=== PATIENT | female | born 1935 | race Caucasian/White ===

== ENCOUNTER → 2016-05-01 | Outpatient (CLI) | payer OTHER ==
[~2016-05-01] MED LIST: ASPI81TA21 PO; CALCTAB5 PO; CHOLTAB3 PO; DIPH-437 PO; FRRS300 PO; FSM70 PO; FURO20TA PO; LEVO125T72 PO; LISI-461 PO; LSX/40 PO; MULT-506 PO; OPTIRAY 320 IV PRN; POTA-327 PO; PRLSR20 PO; PXL20 PO; SPRIN/30 INH; SYMIN/8045 INH; multaq PO; vitamin c PO
--- NOTE | 2016-05-01 11:51 | DIAGNOSTIC IMAGING REPORT ---
CT sinuses SINUSES-MAXILLOFACIAL WITH CLINICAL HISTORY: R04.0 [id number] Acute [id number] Headache headache TECHNIQUE: Transaxial acquisition with multi axial reformatted images COMPARISON STUDY: None FINDINGS: All major sinuses are considered clear. There is no significant mucosal thickening. No evidence for significant nasal occlusive change. Ostomy units are patent bilaterally. Osseous structures are intact throughout. IMPRESSION: Negative study Electronically signed by: Harjinder Brown M.D. 05/01/2016 11:50 AM Dictated Date/Time: 05/01/2016 11:49 AM
--- NOTE | 2016-05-01 12:00 | DIAGNOSTIC IMAGING REPORT ---
CT SCAN OF THE ABDOMEN WITH IV CONTRAST CLINICAL HISTORY: Epigastric abdominal pain. COMPARISON STUDY: No priors. TECHNIQUE: Following the IV administration of 93 cc of Optiray 320, CT scan of the abdomen is performed from the lung bases to the pelvic inlet. Images are reviewed in the axial, sagittal, and coronal planes. IV contrast was administered without complication. Automated dose control exposure was utilized. CT DOSE: 1590.74 mGy.cm FINDINGS: Lung bases: The heart is enlarged and without pericardial effusion. The coronary arteries and aortic valve leaflets are densely calcified. There is lipomatous hypertrophy of the interatrial septum. The lung bases are clear. A small hiatal hernia is noted. Liver: The contrast-enhanced liver is normal in size, contour, and attenuation. There is no intrahepatic biliary ductal dilatation. The hepatic veins and portal veins are patent. Gallbladder: Surgically absent noting clips in the gallbladder fossa. Spleen: Normal in size and attenuation. Pancreas: There is moderate glandular atrophy of the pancreas which is grossly unremarkable. Adrenal glands: Unremarkable. Kidneys: The contrast enhanced kidneys demonstrate cortical atrophy and are without hydronephrosis. The kidneys enhance symmetrically. A retroaortic left renal vein is incidentally noted. Subcentimeter cortical hypodensities likely represent cysts but are too small for definitive characterization. Abdominal vasculature: The abdominal aorta is normal in course and caliber noting moderate to advanced atherosclerotic calcification. Bowel: Visualized portions of the small bowel and colon are normal in course and caliber. Moderate fecal retention is noted in the partially imaged colon. Peritoneum: There is no intraperitoneal free air or abdominal ascites. Lymphadenopathy: Prominent lymph nodes in the boubacar hepatis are nonspecific and measure up to 10 mm in short axis. There is no retroperitoneal or mesenteric lymphadenopathy. Skeletal structures: The skeletal structures are osteopenic. Moderate lumbosacral spondylosis is observed. No lytic or blastic lesions are seen. IMPRESSION: 1. There are no acute infectious or inflammatory findings in the abdomen. 2. Cardiomegaly and hiatal hernia. 3. Colonic fecal retention. Electronically signed by: Erick Dacosta M.D. 05/01/2016 11:59 AM Dictated Date/Time: 05/01/2016 11:55 AM
== END | disposition home or self-care (01) ==
LOC: C.CTS 10:42
PROVIDERS: ATTEND Internal Medicine Pulmonary Disease
DX: R11.10 Vomiting, unspecified (principal); R10.13 Epigastric pain; J01.90 Acute sinusitis, unspecified; R51 Headache; R04.0 Epistaxis; I51.7 Cardiomegaly; K44.9 Diaphragmatic hernia without obstruction or gangrene; K59.00 Constipation, unspecified

== ENCOUNTER → 2017-10-17 | Outpatient (CLI) | payer OTHER ==
[2011-11-01 11:58] VITALS: BMI 44.0
[2017-10-02 11:38] VITALS: BMI 39.0
[~2017-10-17] MED LIST changes: +ADVIN50/60 INH; +ASPI-319 PO; -ASPI81TA21 PO; +CALC1CAP24; +CALC600T37 PO; -CALCTAB5 PO; +CHOL400T PO; -CHOLTAB3 PO; +FERR1TAB13 PO; -FRRS300 PO; -FSM70 PO; +FURO-85 PO; -FURO20TA PO; -LISI-461 PO; +LISI-726 PO; -LSX/40 PO; +LSX40 PO; +MELA1TAB5 PO; -OPTIRAY 320 IV PRN; +OXGN; +PARO1TAB27 PO; -POTA-327 PO; +POTA-639 PO; +PROPOFOL IV EMULSION 10 MG/ML 20 ML VIAL ONE; -PXL20 PO; +RANI300T2 PO; -SPRIN/30 INH; -SYMIN/8045 INH; +TIOT1SPR INH; +ZOLE5INJ
--- NOTE | 2017-10-17 11:52 | PAT Medication Instructions ---
Service Date Oct 17, 2017. Current Home Medication List Acetaminophen/Diphenhydramine (Tylenol Pm), 1 TAB PO HS PRN Aspirin Enteric Coated (Ecotrin Or Generic), 81 MG PO QAM Calcium (Calcium) Calcium (Calcium), 1 TAB PO QAM Cholecalciferol (Vitamin D), 1 TAB PO QAM Ferrous Sulfate (Kp Ferrous Sulfate), Unknown Dose PO QAM Fluticasone Prop/Salmeterol (Advair Diskus 500/50 60 Dose), 1 PUFF INH BID Furosemide (Furosemide), 1 TAB PO 3XWK Furosemide (Lasix), 20 MG PO 4XWK Home O2 Therapy (Oxygen), 2 LITER NA PRN Levothyroxine Sodium (Synthroid), 125 MCG PO QAM Lisinopril (Lisinopril), 1 TAB PO QAM Melatonin (Kp Melatonin), 1 TAB PO HS Multivitamin (Multivitamin), 1 TAB PO QAM Omeprazole (Prilosec), 20 MG PO BID Paroxetine (Paxil), 10 MG PO QAM Potassium Ext Rel (Klor-Con), 10 MEQ PO DAILY AT NOON Ranitidine (Zantac), 300 MG PO UD PRN for REFLUX Tiotropium [place] (Spiriva Respimat), 2 PUFF INH BID Zoledronic Acid (Reclast), 1 DOSE UD [multaq], 400 MG PO BID [vitamin c], 500 MG PO QAM Medication Instructions For Your Scheduled Surgery -Continue as needed: Home O2 Therapy (Oxygen), 2 LITER NA PRN Zoledronic Acid (Reclast), 1 DOSE UD - Hold the following medications the morning of surgery: Calcium (Calcium), 1 TAB PO QAM Cholecalciferol (Vitamin D), 1 TAB PO QAM Ferrous Sulfate (Kp Ferrous Sulfate), Unknown Dose PO QAM Furosemide (Furosemide), 1 TAB PO 3XWK Furosemide (Lasix), 20 MG PO 4XWK Lisinopril (Lisinopril), 1 TAB PO QAM Multivitamin (Multivitamin), 1 TAB PO QAM [vitamin c], 500 MG PO QAM - Take the following medications the morning of surgery with a sip of water: Aspirin Enteric Coated (Ecotrin Or Generic), 81 MG PO QAM Fluticasone Prop/Salmeterol (Advair Diskus 500/50 60 Dose), 1 PUFF INH BID Levothyroxine Sodium (Synthroid), 125 MCG PO QAM Omeprazole (Prilosec), 20 MG PO BID Paroxetine (Paxil), 10 MG PO QAM Ranitidine (Zantac), 300 MG PO UD PRN for REFLUX (if needed) Tiotropium [place] (Spiriva Respimat), 2 PUFF INH BID [multaq], 400 MG PO BID - Take the following medications as scheduled the afternoon/night before surgery : Acetaminophen/Diphenhydramine (Tylenol Pm), 1 TAB PO HS PRN (if needed) Fluticasone Prop/Salmeterol (Advair Diskus 500/50 60 Dose), 1 PUFF INH BID Melatonin (Kp Melatonin), 1 TAB PO HS Omeprazole (Prilosec), 20 MG PO BID Potassium Ext Rel (Klor-Con), 10 MEQ PO DAILY AT NOON Ranitidine (Zantac), 300 MG PO UD PRN for REFLUX (if needed) [multaq], 400 MG PO BID If you have any questions please call us at [phone] or [phone] or [phone]
--- NOTE | 2017-11-19 09:15 | CODING QUERY NO DIAGNOSIS ---
1937 TREATMENT RENDERED WITHOUT A DIAGNOSIS To promote full compliance with coding requirements relating to patient care, physician participation is requested in all cases of high school history teacher uncertainty. Please assist us with providing a diagnosis/symptom for the test(s) below: A diagnosis/symptom was not documented on your Order. A valid diagnosis/symptom is required to bill all insurances. Please remember that we are unable to code a diagnosis of rule out, probable, possible, questionable, or suspected. DOS 10/17/17 Tests that require a diagnosis: *TYPE/ SCREEN PROFILE DIAGNOSIS: Provider Signature: Date: Thank you , DELMA Rodriguez, [facility] Health Information Management Once completed, please kindly fax back to [phone] For questions please call [phone]
== END | disposition home or self-care (01) ==
LOC: C.LAB 08:00 → EDSTATUS 11-23 07:00
PROVIDERS: ATTEND Orthopaedic Surgery
DX: M75.120 Complete rotator cuff tear or rupture of unspecified shoulder, not specified as traumatic (principal)

== ENCOUNTER 2017-11-23 08:57 | Inpatient (IN) | payer OTHER ==
[2017-10-02 11:38] VITALS: BMI 39.0
[2017-10-17 11:15] VITALS: BMI 40.0
--- NOTE | 2017-11-21 08:16 | HISTORY & PHYSICAL EXAMINATION ---
DATE OF ADMISSION: 11/23/2017 CHIEF COMPLAINT: Primary osteoarthritis of the left shoulder. HISTORY OF PRESENT ILLNESS: Alesha is a pleasant 82-year-old female who has been dealing with chronic increasing left shoulder pain. She did have a fall about 2 years ago and her pain got much worse. She has difficulty elevating her arm above chest level. It has gone to the point where her pain and weakness are affecting her daily activities. She has trouble sleeping at night and doing anything away from her body. X-rays and clinical examination were diagnostic for primary osteoarthritis of the left shoulder. After failing conservative treatment, she had elected to proceed with a left total shoulder arthroplasty. PAST MEDICAL HISTORY: Significant for atrial fibrillation, hypothyroidism, hypertension, thyroid, breast and uterine cancer with breast cancer being treated with radiation and other cancers treated with excision, GERD, and asthma. PAST SURGICAL HISTORY: Significant for hysterectomy, breast lumpectomy, thyroidectomy, bilateral total knee arthroplasties, and cataracts. ALLERGIES: None. MEDICATIONS: Include lisinopril, Synthroid, Reclast, Paxil, Lasix, Klor-Con, Zantac, omeprazole, Symbicort, Spiriva, albuterol, aspirin, iron, melatonin, and Bentyl. FAMILY HISTORY: Significant for breast, bladder, skin cancer, diabetes, and heart disease. SOCIAL HISTORY: She is single. She lives in the [place] area. She has 9 sisters and 3 brothers. Her family is able to take care of her postoperatively. REVIEW OF SYSTEMS: She complains of left shoulder pain. All other pertinent review of systems are negative. PHYSICAL EXAMINATION: GENERAL: She is awake, alert, and oriented x3. She is in no apparent distress. She is very pleasant. HEENT: Pupils equal, round, reactive to light. Extraocular motion intact. Oral mucosa is pink and moist. HEART: Regular rate per radial pulse. LUNGS: Hailey symmetrically bilaterally with no audible breath sounds. ABDOMEN: Soft, nontender, nondistended. MUSCULOSKELETAL: On physical examination of the left shoulder, actively she has 90 degrees of forward elevation and 60 degrees of abduction. She has 3/5 motion with full can testing and external rotation. Negative belly press test. Pain over the anterior glenohumeral joint line. X-rays do show advanced arthritis with joint space narrowing, osteophyte formation, and [id number] articulation. There is flattening of the humeral head and posterior glenoid wear. IMPRESSION: Advanced osteoarthritis of the left shoulder with possible rotator cuff tear. PLAN: Given her age and functional level, we will proceed with a reverse left total shoulder arthroplasty. Postoperatively, she will be placed in an arm sling and kept overnight for postoperative medical management. She will use [facility] upon discharge.
[~2017-11-23] VITALS: Ht 167.6 cm; Wt 112.1 kg
[2017-11-23] VITALS (9 sets, daily range): BP systolic 90–154; BP diastolic 55–75; PULSE 64–75; TEMP 36.4–36.8; O2SAT 94–100; Ht 167.6 cm; Wt 112.1 kg
[~2017-11-23 08:57] MED LIST changes: +ACETAMINOPHEN 500 MG TAB PO SCH; +CEFAZOLIN 2000MG IV PUSH 15 ML IV SCH; +CeleBREX 200 MG CAP PO SCH; +FAMOTIDINE 20 MG TAB PO SCH; +GABAPENTIN 300 MG CAP PO SCH; +GABAPENTIN 900 MG PO SCH; +LACTATED RINGER'S 1000ML 1,000 ML IV SCH; +LACTATED RINGER'S 1000ML IV SCH; -PROPOFOL IV EMULSION 10 MG/ML 20 ML VIAL ONE; +ROPIVACAINE 5MG/ML 30 ML 150 MG, BUPIVACAINE 0.5% MPF INJ 30 ML, EpINEphrine HCL INJ 0.... INFIL SCH; +TRANEXAMIC ACID INJ 1,000 MG x 1 Bag Intra-Op IV SCH
--- NOTE | 2017-11-23 08:57 | History & Physical Bridge Note ---
H&P Re-Evaluation Bridge Note: I have examined the patient, reviewed the History & Physical and in the interval since the performance of the History & Physical I have noted the following changes of clinical significance: No changes noted
[2017-11-23] MEDS ORDERED: SOD PHOSPHATE/SOD BIPHOSPHATE ENEMA 132 ML BTL PR PRN (09:00)
[2017-11-23] MEDS ORDERED: MAGNESIUM HYDROXIDE SUSP 30 ML UDC PO PRN (09:00)
[2017-11-23] MEDS ORDERED: CEFAZOLIN IV 2,000 MG in DEXTROSE 5% 50ML 50 ML IV SCH (09:00)
[2017-11-23] MEDS ORDERED: BISACODYL 10 MG SUPP PR PRN (09:00)
[2017-11-23] MEDS ORDERED: ONDANSETRON INJ 2 MG/ML 2 ML VIAL IV PRN ×2 (09:00→12:45)
[2017-11-23] MEDS ORDERED: METOCLOPRAMIDE HCL INJ 5 MG/ML 2 ML VIAL IV PRN (09:00)
[2017-11-23] MEDS ORDERED: NALOXONE HCL 0.4 MG/1 ML VIAL/CARP IV PRN (09:00)
[2017-11-23] MEDS ORDERED: MoRPHine SULFATE 2 MG/ML CARP IV PRN (09:00)
[2017-11-23] MEDS ORDERED: OXYCODONE HCL IR 5 MG TAB (IMMEDIATE RELEASE) PO PRN (09:00)
[2017-11-23] MEDS ORDERED: BUPIVACAINE/EPINEPHRINE 0.25% 1:200,000 30 ML VIAL ONE (09:25)
[2017-11-23] MEDS ORDERED: DEXAMETHASONE SOD INJ 4 MG/ML VIAL ONE (09:25)
[2017-11-23] MEDS ORDERED: BACITRACIN 50000 UNIT VIAL ONE (10:49)
[2017-11-23] MEDS ORDERED: ORTHO JOINT ANESTHETIC ONE (10:49)
[2017-11-23] MEDS ORDERED: PATIENT'S ALLERGY INFO NEEDS ENTERED SCH (11:00)
[2017-11-23] MEDS ORDERED: GLYCOPYRROLATE INJ 0.2 MG/ML VIAL ONE (11:02)
[2017-11-23] MEDS ORDERED: LIDOCAINE HCL 2% 2 ML VIAL (20MG/ML) ONE (11:02)
[2017-11-23] MEDS ORDERED: FENTANYL CITRATE INJ 50 MCG/1 ML 2 ML VIAL ONE (11:02)
[2017-11-23] MEDS ORDERED: PROPOFOL IV EMULSION 10 MG/ML 20 ML VIAL ONE (11:02)
[2017-11-23] MEDS ORDERED: NEOSTIGMINE METHYLSULFATE 5 MG/5 ML SYR ONE (11:02)
[2017-11-23] MEDS ORDERED: ROCURONIUM BROMIDE 10 MG/ML 5 ML VIAL ONE (11:02)
[2017-11-23] MEDS ORDERED: MIDAZOLAM HCL 1 MG/ML 2ML VIAL ONE (11:02)
[2017-11-23] MEDS ORDERED: ONDANSETRON INJ 2 MG/ML 2 ML VIAL ONE (11:02)
[2017-11-23] MEDS: TRANEXAMIC ACID INJ 1,000 MG x 2 Bags IV SCH ×4 (11:30→17:16)
[2017-11-23] MEDS: CEFAZOLIN 2000MG IV PUSH 15 ML IV SCH ×2 (11:48→11:58)
[2017-11-23] MEDS ORDERED: PROMETHAZINE HCL INJ 6.25 MG in SODIUM CHLORIDE 0.9% 50ML 50 ML IV PRN (12:45)
[2017-11-23] MEDS ORDERED: EpHEDrine SULFATE INJ 50 MG/ML AMP IV PRN (12:45)
[2017-11-23] MEDS ORDERED: FENTANYL CITRATE INJ 50 MCG/1 ML 2 ML VIAL IV PRN (12:45)
[2017-11-23] MEDS ORDERED: ATROPINE SULFATE 0.1 MG/ML 5ML SYR IV PRN (12:45)
--- NOTE | 2017-11-23 13:16 | [facility] Post Operative Brief Note ---
Immediate Operative Summary Operative Date Nov 23, 2017. Pre-Operative Diagnosis Primary osteoarthritis of the left shoulder Post-Operative Diagnosis Primary osteoarthritis of the left shoulder Procedure(s) Performed Left reverse total shoulder replacement Surgeon Dr. Gerard Zelaya Environmental Restoration Planner Surgeon(s) Jermain Telles PA-C Estimated Blood Loss 300ml Findings Consistent with Post-Op Diagnosis Specimens A. Left humeral head Anesthesia Type General [facility]
--- NOTE | 2017-11-23 14:13 | Anesthesiology Progress Note ---
Anesthesia Post Op Note Date & Time Nov 23, 2017 at 14:13 Vital Signs Pain Intensity: 0 Vital Signs Past 12 Hours Date Time Temp Pulse Resp B/P (MAP) Pulse Ox O2 Delivery O2 Flow Rate FiO2 11/23/17 14:05 63 20 116/68 100 Oxymask 10 11/23/17 13:55 63 20 115/64 100 Oxymask 10 11/23/17 13:47 37.0 73 20 142/79 99 Room Air 10 11/23/17 09:34 36.7 75 20 154/69 99 Room Air Notes Mental Status: alert / awake / arousable, participated in evaluation Pt Amnestic to Procedure: Yes Nausea / Vomiting: adequately controlled Pain: adequately controlled Airway Patency, RR, SpO2: stable & adequate BP & HR: stable & adequate Hydration State: stable & adequate Anesthetic Complications: no major complications apparent Block working well in pacu
--- NOTE | 2017-11-23 14:19 | DIAGNOSTIC IMAGING REPORT ---
L SHOULDER MIN 2 VIEWS ROUTINE CLINICAL HISTORY: 82 years-old Female presenting with Post shoulder surgery. TECHNIQUE: Frontal and transcatheter Y views of the left shoulder were obtained. COMPARISON: . FINDINGS: There has been interval reverse total left shoulder arthroplasty. Expected soft tissue emphysema and overlying skin michelet. No malalignment. No periprosthetic fracture. Visualized portion of the left lung clear. Surgical clips project over the base of the neck. IMPRESSION: Expected postsurgical appearance status post reverse total shoulder arthroplasty. Electronically signed by: Eduard Reyes M.D. 11/23/2017 2:17 PM Dictated Date/Time: 11/23/2017 2:16 PM
--- NOTE | 2017-11-23 15:28 | Discharge Instructions ---
Discharge Instructions Date of Service Nov 23, 2017. Admission Reason for Admission: Left Shoulder Degenerative Joint Disease Discharge Discharge Diagnosis / Problem: Left Reverse Total Shoulder Discharge Goals Goal(s): Decrease discomfort, Improve function Activity Recommendations Activity Limitations: as noted below . Instructions / Follow-Up Instructions / Follow-Up Activity and Therapy Recommendations: * Wear your sling for 3 weeks, unless otherwise instructed. You may remove your sling to shower and to dress, but otherwise, you should be in your sling at all times, including while sleeping * The shoulder replacement is very stable and you can use your hand while in the sling * Physical Therapy should start about 3-5 days from your day of surgery. Therapy will last about 8-12 weeks * You were shown a series of exercises in the hospital. Do these exercises daily including the exercises you were shown in physical therapy. Medications: * Narcotic You will likely be sent home from the hospital with a prescription for the narcotic pain medication that worked best throughout your stay. * Other medications may be prescribed for specific circumstances. If you have any questions, please call the office at . * Resume previous home medications unless otherwise instructed Dressing Care: If the incision is not draining then you may leave the michelet open to air. If there is a little bit of drainage or if the michelet are getting stuck on your clothing then cover the incision with a dry dressing. The michelet will be removed at your 2 week follow-up appointment. Showering: You may shower 5 days from the day of surgery. Let the soapy shower water run over the michelet and pat them dry. Do not scrub or soak the incision. Things To Watch For: * Drainage from the incision site that occurs more than one week after your surgery. * Increased redness at the incision site. * Fever above 102 degrees Fahrenheit. * Unusual chest pain or shortness of breath. * Call [facility] at with any of the above problems Follow-Up Visit: Follow-up with Dr. Zelaya 2 weeks after your day of surgery. An appointment was probably scheduled when you signed-up for surgery in the office. If you have any questions call Office Instructions: More detailed instructions as well as Frequently Asked Questions were provided in a folder by our office when you signed-up for surgery. Please review these instructions when you get home. If you have any further questions or concerns, please feel free to call the office at [phone] Current Hospital Diet Patient's current hospital diet: Regular Diet Discharge Diet Recommended Diet: Regular Diet Procedures Procedures Performed: Left reverse total shoulder replacement Pending Studies Studies pending at discharge: no Medical Emergencies . Who to Call and When: Medical Emergencies: If at any time you feel your situation is an emergency, please call 911 immediately. . Non-Emergent Contact Non-Emergency issues call your: Surgeon Call Non-Emergent contact if: wound has increased drainage, wound has increased redness . "Provider Documentation" section prepared by Gerard Zelaya. .
--- NOTE | 2017-11-23 15:35 | OPERATIVE REPORT ---
DATE OF OPERATION: 11/23/2017 PREOPERATIVE DIAGNOSIS: Primary osteoarthritis with insufficient rotator cuff of the left shoulder. POSTOPERATIVE DIAGNOSIS: Primary osteoarthritis with insufficient rotator cuff of the left shoulder. PROCEDURE: Left reverse shoulder arthroplasty. SURGEON: Dr. Gerard Zelaya. TRANSITION OF CARE SPECIALIST: Jermain Telles PA-C, whose assistance was necessary for retraction and closure. ANESTHESIA: General with a left interscalene nerve block. COMPLICATIONS: None. CONDITION: Stable to PACU. INDICATIONS: Amarilis is a pleasant 82-year-old female who presented to my office with chronic increasing left shoulder pain. She had chronic pain and then more recently she fell on her left shoulder and had inability to elevate above chest level. X-rays showed advanced osteoarthritis of the shoulder. Given her very poor function and her age and her body habitus, I felt she would do best with a reverse shoulder arthroplasty. DESCRIPTION OF PROCEDURE: On 11/23/2017, she arrived at [facility] for the above procedure. She was seen in the preoperative holding area and the operative extremity was identified and signed. She was given a preoperative antibiotic and a left interscalene nerve block. She was taken back to the operating room, laid on the table in supine position and put under general anesthesia. She was then put into the beachchair position. The left shoulder was prepped and draped in sterile fashion. Time-out was done. The patient's operative extremity was properly identified. A deltopectoral approach was used. Dissection was taken down through the fascia and the deltoid was retracted laterally and the conjoined tendon was retracted medially. The subscapularis was then peeled off the lesser tuberosity. The long head of the biceps tendon was tenotomized. The proximal humerus was then exposed. There was a partial supraspinatus tear. I went ahead and release the remainder of the supraspinatus. Infraspinatus and teres minor were intact. Sequential reaming of the humerus up to a size 14 reamer was done. Off that reamer, a proximal humeral resection guide was placed. The proximal humerus was resected at 135 degrees of inclination and 25 degrees of retroversion. The glenoid was then exposed. Time was spent doing a complete circumferential capsular and labral release. A [employer] signature guide was then snapped onto the anterior aspect of the glenoid and a guide pin was placed in the reverse shoulder arthroplasty hole. A standard 28 mm baseplate was then reamed. The final 20 mm baseplate was then impacted in place. A single central screw was placed followed by superior and inferior locking screws. A 36 mm standard eccentric glenosphere was then impacted into place. The surrounding soft tissues were injected with 100 mL of an orthopedic pain control cocktail. The proximal humerus was then exposed. Sequential broaching up to a size 14 broach was done. Off that broach, a standard humeral tray was trialed. The shoulder was reduced, brought through a full range of motion and felt to be stable. The proximal humerus was then dislocated. The broach was removed. The final size 14 mini pressfit stem was then impacted into place. The standard humeral bearing was snapped onto the humeral tray and the ring lock mechanism was engaged. The humeral tray was then impacted onto the humeral stem. The shoulder was reduced. The subscapularis was then tenodesed back to the lesser tuberosity with transosseous FiberWire sutures. The joint was then irrigated with 3 liters normal saline solution with bacitracin. The axillary nerve was palpated. Hemostasis was obtained. Skin was closed with 2-0 Vicryl, 3-0 V-Loc suture and michelet. She was then placed in a soft dressing and a regular arm sling. She was then extubated, transferred to a hospital bed and taken to postanesthesia care unit in stable condition. She tolerated the procedure well. IMPLANTS USED: I used a [employer] comprehensive left reverse shoulder arthroplasty system with a standard 28 mm baseplate with a 30-mm central screw, 2 peripheral locking screws, a 36 mm standard eccentric glenosphere, a standard humeral tray and bearing and a 14 mm press fit mini stem. I attest to the content of the Intraoperative Record and any orders documented therein. Any exception s are noted below.
[2017-11-23] MEDS ORDERED: FUROSEMIDE 20 MG TAB PO SCH (16:00)
[2017-11-23] MEDS: POTASSIUM CHLORIDE 10 MEQ TABCR PO SCH (17:11)
[2017-11-23] MEDS: POTASSIUM CHLORIDE INJ 10 MEQ in SODIUM CHLORIDE 0.9% 1000ML 1,000 ML IV SCH (17:11)
[2017-11-23] MEDS: LISINOPRIL 20 MG TAB PO SCH (17:12)
[2017-11-23] MEDS: MULTIVITAMIN TAB PO SCH (17:12)
[2017-11-23] MEDS: PAROXETINE 20 MG TAB PO SCH (17:13)
[2017-11-23] MEDS: ACETAMINOPHEN IV 1,000 MG in EMPTY BAG 0 ML IV SCH (18:10)
[2017-11-23] MEDS: KETOROLAC TROMETHAMINE 15 MG/ML VIAL IV. SCH ×2 (18:13→23:39)
[2017-11-23] MEDS: CEFAZOLIN IV 2,000 MG in SYRINGE 0 ML IV SCH (20:04)
[2017-11-23] MEDS: PANTOprazole SOD 40 MG TAB PO SCH (20:09)
[2017-11-23] MEDS: DOCUSATE SODIUM 100 MG CAP PO SCH (20:10)
[2017-11-23] MEDS: FLUTICASONE/SALMETEROL (ADVAIR) 500/50 INH 14 PUFF INH SCH (20:11)
[2017-11-23] MEDS ORDERED: SENNA 8.6 MG TAB PO SCH (21:00)
[2017-11-24] MEDS: POTASSIUM CHLORIDE INJ 10 MEQ in SODIUM CHLORIDE 0.9% 1000ML 1,000 ML IV SCH (01:22)
[2017-11-24] MEDS: ACETAMINOPHEN IV 1,000 MG in EMPTY BAG 0 ML IV SCH ×2 (01:22→09:43)
[2017-11-24 03:40] VITALS: BP 105/67; PULSE 74; TEMP 36.6; O2SAT 93
[2017-11-24] MEDS: CEFAZOLIN IV 2,000 MG in SYRINGE 0 ML IV SCH (03:47)
[2017-11-24 03:56] VITALS: O2SAT 96
[2017-11-24] MEDS: KETOROLAC TROMETHAMINE 15 MG/ML VIAL IV. SCH (05:41)
[2017-11-24] MEDS ORDERED: LEVOTHYROXINE 125 MCG TAB PO SCH (06:00)
[2017-11-24 06:33] LABS: HEMATOCRIT 33.1 % (37-47); HEMOGLOBIN 11.2 g/dL (12.0-16.0); MEAN CELL VOLUME 90.7 fL (80-100); MEAN CORPUSCULAR HEMOGLOBIN 30.7 pg (25-34); MEAN CORPUSCULAR HGB CONC 33.8 g/dl (32-36); MEAN PLATELET VOLUME 10.9 fL (7.4-10.4); PLATELET COUNT 159 K/uL (130-400); RED CELL DISTRIBUTION WIDTH CV 14.1 % (11.5-14.5); WHITE BLOOD COUNT 14.81 K/uL (4.8-10.8)
[2017-11-24 07:09] LABS: CALCIUM 8.2 mg/dl (8.5-10.1); CREATININE 1.04 mg/dl (0.60-1.20); POTASSIUM 4.8 mmol/L (3.5-5.1)
[2017-11-24] MEDS ORDERED: RXC5 PO (07:41)
[2017-11-24] MEDS ORDERED: TRAM-10 PO (07:45)
[2017-11-24 07:59] VITALS: BP 102/64; PULSE 70; TEMP 36.5; O2SAT 96
[2017-11-24] MEDS: FLUTICASONE/SALMETEROL (ADVAIR) 500/50 INH 14 PUFF INH SCH (08:42)
[2017-11-24] MEDS: PANTOprazole SOD 40 MG TAB PO SCH (08:43)
[2017-11-24] MEDS: MULTIVITAMIN TAB PO SCH (08:43)
[2017-11-24] MEDS: POTASSIUM CHLORIDE 10 MEQ TABCR PO SCH (08:43)
[2017-11-24] MEDS: DOCUSATE SODIUM 100 MG CAP PO SCH (08:43)
[2017-11-24] MEDS: LISINOPRIL 20 MG TAB PO SCH (08:48)
[2017-11-24] MEDS: PAROXETINE 20 MG TAB PO SCH (08:48)
--- NOTE | 2017-11-24 08:58 | PROGRESS NOTE ---
DATE: 11/24/2017 CHIEF COMPLAINT: Status post reverse left shoulder arthroplasty, postop day #1. PROGRESS: Amarilis was seen and examined at bedside today. Overall, she is doing very well. She has little to no pain in her shoulder. She is happy with her progress, has no complaints. PHYSICAL EXAMINATION: LEFT SHOULDER: The dressing is clean and dry and she is wearing a sling as instructed. The radial, median and ulnar nerves were checked and intact at the wrist. Her axillary nerve was not definitively checked yet. LABORATORY DATA: She has an H and H today of 11.2 and 33.1. Her glucose is 119. Her vital signs were all stable on room air and she is voiding on her own. X-rays postoperatively of the left shoulder show the prosthesis to be in anatomic alignment without evidence of fracture, dislocation or loosening. IMPRESSION: Status post reverse left shoulder arthroplasty, postoperative day #1. PLAN: At this point, she is doing as well as expected. She will get physical therapy this morning for hand, wrist, elbow and pendulum exercises. Her pain is well controlled. We will discharge her to home later this morning with [facility].
[2017-11-24] MEDS ORDERED: TIOTROPIUM BROMIDE 5 PUFF/90 MCG INH INH SCH (09:00)
[2017-11-24] MEDS ORDERED: FUROSEMIDE 20 MG TAB PO SCH (09:00)
[2017-11-24] MEDS ORDERED: ASPIRIN 81 MG ECTAB PO SCH (09:00)
[2017-11-24 09:23] VITALS: BP 102/64; PULSE 70; TEMP 36.5; O2SAT 96
--- NOTE | 2017-11-24 09:27 | DISCHARGE SUMMARY ---
DISCHARGE DIAGNOSIS: Primary osteoarthritis of the left shoulder with insufficient rotator cuff. PROCEDURE: Left reverse shoulder arthroplasty by Dr. Zelaya on 11/23/2017. DISCHARGE INSTRUCTIONS: 1. Tramadol 50 mg every 6 hours as needed for pain. 2. Left arm sling for 3 weeks. 3. Follow up with Dr. Zelaya in 2 weeks. 4. Call the office of Dr. Zelaya with any questions or concerns. 5. Aspirin 81 mg daily. 6. Advair 1 puff twice a day. 7. Lasix 40 mg 3 times a week and 20 mg 4 times a week. 8. Home oxygen as needed. 9. Synthroid 125 ____daily. 10. Lisinopril 20 mg daily. 11. Melatonin 3 mg at night. 12. Prilosec 20 mg twice a day. 13. Paxil 10 mg daily. 14. Potassium 10 mEq daily. 15. Zantac 300 mg as needed. 16. Spiriva 2 puffs twice a day. 17. Reclast injections. 18. Continue all other over the counter and prescription vitamins, minerals and supplementations. HOSPITAL COURSE: Amarilis is a pleasant 82-year-old female who presented to my office with chronic increasing left shoulder pain. X-rays and clinical examination were diagnostic for primary osteoarthritis of her left shoulder. Given her body habitus and her very poor range of motion, I felt she was best treated with reverse left shoulder arthroplasty. On 11/23/2017, she arrived at [facility] and underwent a reverse left shoulder arthroplasty without complication. She had a general anesthetic and a left interscalene nerve block. Postoperatively, she was discharged to general orthopedic floor. Her hospital course was uneventful. On postop day #1, her H and H was stable at 11.2 and 33.1. She was able to participate well with physical therapy, doing hand, wrist, elbow and pendulum exercises. She was subsequently discharged to home with [facility] and the above instructions.
[2017-11-24] MEDS ORDERED: ACETAMINOPHEN 500 MG TAB PO SCH (16:00)
== END 2017-11-24 10:26 | disposition home health service (06) | DRG 483 ==
LOC: C.ACU 08:57 → C.3E 09:00 → ENRESERV 14:28
PROVIDERS: ADMIT Orthopaedic Surgery; ATTEND Orthopaedic Surgery
PROC: 0RRK00Z Replacement of Left Shoulder Joint with Reverse Ball and Socket Synthetic Substitute, Open Approach (ICD-10-PCS; principal; 2017-11-23 12:00)
DX: M19.012 Primary osteoarthritis, left shoulder (principal); I48.91 Unspecified atrial fibrillation; E03.9 Hypothyroidism, unspecified; Z85.42 Personal history of malignant neoplasm of other parts of uterus; Z92.3 Personal history of irradiation; K21.9 Gastro-esophageal reflux disease without esophagitis; J45.909 Unspecified asthma, uncomplicated